=== PATIENT | female | born 1975 | race Caucasian/White ===

== ENCOUNTER 2017-02-25 16:16 | Emergency (ER) | payer OTHER ==
[2017-02-25 16:26] VITALS: BP 132/81
--- NOTE | 2017-02-25 16:47 | PHYS DOC ---
Past Medical History Past Medical History: No Pertinent History Past Surgical History: No Surgical History Alcohol Use: None Drug Use: None Adult General Chief Complaint Chief Complaint: FOOT INJURY PAIN HPI HPI Patient is a 41 year old female presents emergency department stating that she is having left ankle pain and discomfort. She states this started approximately one week ago. She said that she was putting laundry away and she had her foot straight underneath the dresser when she went to turn she felt as though she might of pulled it at that time. She states she is able to inability without difficulty. She has not taken anything for the pain and discomfort. She states within the last 2 nights that the pain has become increasingly painful. She states that she has placed ice on it once. She is been elevating it as she remembers. She denies any numbness or tingling into the foot. She describes the pain in the anterior part of the ankle as a tingling-type pain and discomfort. Peripheral pulses are 2+ cap refill brisk less than 2 seconds. Review of Systems Review of Systems Constitutional: Denies fever or chills [] Eyes: Denies change in visual acuity, redness, or eye pain [] HENT: Denies nasal congestion or sore throat [] Respiratory: Denies cough or shortness of breath [] Cardiovascular: No additional information not addressed in HPI [] GI: Denies abdominal pain, nausea, vomiting, bloody stools or diarrhea [] : Denies dysuria or hematuria [] Musculoskeletal: Denies back pain. left ankle pain Integument: Denies rash or skin lesions [] Neurologic: Denies headache, focal weakness or sensory changes [] Endocrine: Denies polyuria or polydipsia [] Allergies Allergies Allergies Coded Allergies Type Severity Reaction Last Updated Verified No Known Drug Allergies 02/25/17 No Physical Exam Physical Exam Constitutional: Well developed, well nourished, no acute distress, non-toxic appearance. [] HENT: Normocephalic, atraumatic, bilateral external ears normal, oropharynx moist, no oral exudates, nose normal. [] Eyes: PERRLA, EOMI, conjunctiva normal, no discharge. [] Neck: Normal range of motion, no tenderness, supple, no stridor. [] Cardiovascular:Heart rate regular rhythm Lungs & Thorax: No respiratory distress noted Skin: Warm, dry, no erythema, no rash. [] Back: No tenderness Extremities: Right anterior ankle tenderness, no swelling noted bruising no discoloration noted. No cyanosis, no clubbing, ROM intact, no edema. Peripheral pulses 2+ cap refill brisk less than 2 seconds good sensation noted. Neurologic: Alert and oriented X 3, normal motor function, normal sensory function, no focal deficits noted. [] Psychologic: Affect normal, judgement normal, mood normal. [] Current Patient Data Vital Signs Vital Signs Date Time Temp Pulse Resp B/P (MAP) Pulse Ox O2 Delivery O2 Flow Rate FiO2 02/25/17 16:26 98.2 80 20 99 Room Air 98.2 EKG EKG [] Radiology/Procedures Radiology/Procedures [] Course & Med Decision Making Course & Med Decision Making Pertinent Labs and Imaging studies reviewed. (See chart for details) X-ray negative for bony abnormality per Dr Mendoza. Ice packs on 20 minutes and off 20 minutes several times a day. Elevation as much as possible. Ibuprofen for pain and discomfort. Followup with orthopedic as needed in 1 weeks. Wear the carmine wrap for the next week. Patient was provided with signs and symptoms to return to the emergency department has been provided. Patient agrees with discharge instructions, treatment regimen and followup recommendations. [] Dragon Disclaimer Dragon Disclaimer This electronic medical record was generated, in whole or in part, using a voice recognition dictation system. Departure Departure Impression: Primary Impression: Left ankle pain Disposition: 01 HOME, SELF-CARE Condition: STABLE Referrals: BRIAN AYALA II, MD Patient Instructions: Ankle Pain Additional Instructions: X-ray of your left ankle was negative for any bony abnormality Carmine wrap on for the next 5-7 days Ice packs on 20 minutes and off 20 minutes several times a day Ibuprofen for pain and discomfort Followup with orthopedic as needed Return to emergency department as needed for signs and symptoms that become worse. DEBI RIVAS [employer] Feb 25, 2017 16:47
--- NOTE | 2017-02-25 17:10 | RAD ---
Left ankle, 3 views, 02/25/2017: History: Pain No fracture or dislocation is identified. No significant arthritic change is evident. There is a small inferior calcaneal spur. IMPRESSION: No acute bony abnormality is detected.
== END 2017-02-25 17:05 | disposition home or self-care (01) ==
LOC: ER 16:16
DX: M25.572 Pain in left ankle and joints of left foot (principal)
CPT/HCPCS: 73610; 99284-25